=== PATIENT | female | born 1990 | race Caucasian/White ===

== ENCOUNTER 2019-04-29 18:39 | Emergency (ER) | payer MEDICAID ==
[~2019-04-29] VITALS: Ht 162.6 cm; Wt 90.8 kg
--- NOTE | 2019-04-29 19:46 | NUR ---
PT HERE WITH C/O LEFT SCIATIC NERVE PAIN AND DENTAL PAIN FROM CRACKED TOOTH, DENIES DENTIST LOCALLY.
[2019-04-29 20:37] LABS: HCG UR SG 1.021 (1.003-1.030)
[2019-04-29] MEDS ORDERED: KETOROLAC 30 MG/1 ML ONE (20:47)
[2019-04-29] MEDS ORDERED: KETOROLAC 30 MG/1 ML IM ONE (21:00)
[2019-04-29 21:05] VITALS: BP 116/78
== END 2019-04-29 21:08 | disposition home or self-care (01) ==
LOC: ED 20:50
DX: M54.42 Lumbago with sciatica, left side (principal); K08.89 Other specified disorders of teeth and supporting structures; Z72.9 Problem related to lifestyle, unspecified; R51 Headache; Z87.891 Personal history of nicotine dependence
CPT/HCPCS: 81025; 96372; 99283; J1885

== ENCOUNTER 2019-07-05 12:48 | Emergency (ER) | payer MEDICAID, OTHER ==
[~2019-07-05] VITALS: Ht 162.6 cm; Wt 90.6 kg
[2019-07-05 12:49] VITALS: BP 109/73
--- NOTE | 2019-07-05 13:15 | NUR ---
REVIEWED PROVIDED DENTIST INFORMATION, RX INFORMATION WELL INTERVENTIONS AT HOME TO MINIMIZE PAIN BEFORE SHE IS ABLE TO SEE THE DENTIST
== END 2019-07-05 13:23 | disposition home or self-care (01) ==
LOC: ED 13:21
DX: K02.9 Dental caries, unspecified (principal); K08.89 Other specified disorders of teeth and supporting structures; Z87.891 Personal history of nicotine dependence
CPT/HCPCS: 99283